=== PATIENT | male | born 1955 | race Caucasian/White ===

== ENCOUNTER 2017-11-04 08:15 | Day surgery (SDC) | payer MEDICARE, BC ==
[~2017-11-04 08:15] MED LIST: ACETAMINOPHEN 1,000 MG/100 ML BTL IV ONE; CEFAZOLIN 2 Gram 2 GM/50 ML BAG IVPB ONE
[2017-11-04] MEDS ORDERED: MORPHINE SULFATE 5 MG/ML PFS IVP ONE (08:16)
[2017-11-04] MEDS ORDERED: KETOROLAC 30 MG/ML VIAL IVP ONE (08:16)
[2017-11-04] MEDS ORDERED: METHYLPREDNISOLONE 40MG/VIAL IM ONE (08:16)
[2017-11-04] MEDS ORDERED: SEVOFLURANE 250 ML INH ONE (08:16)
[2017-11-04] MEDS ORDERED: BUPIVACAINE 0.5% W/EPI MPF 30 ML VIAL IVP ONE (08:16)
[2017-11-04] MEDS ORDERED: *PACU ONLY* KETAMINE HCL 10 MG/ML (20ML) VIAL IV ONE (08:16)
[2017-11-04] MEDS ORDERED: PROPOFOL 10 MG/ML VIAL IV ONE (08:16)
[2017-11-04] MEDS ORDERED: LIDOCAINE 2% MDV (20MG/ML) 20ML VIAL IV ONE (08:16)
--- NOTE | 2017-11-04 21:05 | Operative Note ---
DATE OF SURGERY: 11/04/2017 PREOPERATIVE DIAGNOSIS: INTERNAL DERANGEMENT LEFT KNEE. POSTOPERATIVE DIAGNOSES: 1. SMALL GRADE 3 CHONDROMALACIA PATELLA. 2. SMALL TEAR OF THE ANTERIOR HORN OF THE MEDIAL MENISCUS. 3. SMALL TEAR OF THE ANTERIOR HORN OF THE LATERAL MENISCUS. PROCEDURE: 1. LEFT KNEE ARTHROSCOPY WITH PARTIAL MEDIAL AND LATERAL MENISCECTOMIES. 2. LEFT KNEE ARTHROSCOPY WITH DEBRIDEMENT OF THE PATELLA AND CHONDROPLASTY. STAFF SURGEON: MARLEY WALLACE M.D. ANESTHESIA: GENERAL. PREPARATION: CHLORAPREP. INDIVIDUAL CONSIDERATIONS: NONE. PROCEDURE: The patient was taken to the Operating Room and placed supine on the operating table. He had a successful induction with general anesthetic. His left lower extremity was prepped and draped in the usual fashion. The patient had a superior lateral inflow cannula placed. The skin was infiltrated with 0.5% Marcaine with Epinephrine prior. The knee was then inflated with normal saline. An inferior medial and an inferior lateral portal were made in a similar fashion. The arthroscope was introduced through the inferior lateral portal up into the pouch. The patellofemoral compartment showed small grade 3 changes superiorly and this was smoothed with a shaver. No significant synovitis was seen in the pouch or either gutter. No loose bodies were seen. Medially, he had an anterior horn tear, which was basically a split tear involving the anterior horn about assisted through the meniscus, which was debrided back to a stable rim with a shaver. The articular cartilage and the remainder of the meniscus was normal. In the notch, the cruciates were normal. Laterally, a similar type of tear was seen anteriorly and this was debrided back to a stable rim with basket forceps and a shaver. The remainder of the meniscus and articular cartilage and popliteus tendon were normal. The knee was then irrigated out with saline. The portals were closed with farshad. 20 mL of 0.25% plain Marcaine along with 5 mg of Morphine and 40 mg of DepoMedrol were injected into the knee and a sterile Bulkee compressive dressing was applied. The patient tolerated the procedure well. Needle and sponge counts were correct. Estimated blood loss was minimal and he was taken back to Recovery in good condition. There were no complications. cc: Dr. Arias Daniels JOB NUMBER: [id number] [facility]
== END 2017-11-04 12:10 | disposition home or self-care (01) ==
LOC: SUR 08:15
PROVIDERS: ATTEND Orthopaedic Surgery
DX: M23.242 Derangement of anterior horn of lateral meniscus due to old tear or injury, left knee (principal); M23.212 Derangement of anterior horn of medial meniscus due to old tear or injury, left knee; M22.42 Chondromalacia patellae, left knee; I10 Essential (primary) hypertension
CPT/HCPCS: 29880; 01400; J1885; J0690; J2270; G0289; J1030